=== PATIENT | female | born 1990 | race Caucasian/White ===

== ENCOUNTER 2020-01-01 12:32 | Emergency (ER) | payer OTHER ==
[2020-01-01 13:45] LABS: BASO % 0.3 % (0.0-1.0); EOS # 0.1 10^3/uL (0.0-0.5); EOS % 1.3 % (0.0-3.0); HEMATOCRIT 43.3 % (36.0-47.0); HEMOGLOBIN 14.8 g/dl (12.0-15.5); LYMPH # 1.5 10^3/uL (1.5-5.0); LYMPH % 16.9 % (24.0-44.0); MEAN CORPUSCULAR HEMOGLOBIN 31.5 pg (27.0-33.0); MEAN CORPUSCULAR HGB CONC 34.2 g/dl (32.0-36.5); MEAN CORPUSCULAR VOLUME 92.1 fl (80.0-96.0); MONO # 0.7 10^3/uL (0.0-0.8); MONO % 7.3 % (0.0-5.0); NEUTROPHILS # 6.6 10^3/uL (1.5-8.5); NEUTROPHILS % 74.1 % (36.0-66.0); PLATELET COUNT, AUTOMATED 228 10^3/uL (150-450); WHITE BLOOD COUNT 8.9 10^3/uL (4.0-10.0)
[2020-01-01 13:48] LABS: VENOUS BASE EXCESS 0.1 (-2.0-2.0); VENOUS HCO3 23.6 MEQ/L (23.0-27.0); VENOUS PARTIAL PRESSURE O2 44.8 mmHg (30.0-50.0); VENOUS PH 7.447 UNITS (7.330-7.430); VENOUS STANDARD HCO3 24.3 MEQ/L; VENOUS TOTAL CO2 24.7 MEQ/L (24.0-28.0)
[2020-01-01] MEDS ORDERED: [UNRECOGNIZED DRUG - CODE] PO (13:48)
[2020-01-01] MEDS ORDERED: birth control pills PO (13:48)
[2020-01-01 14:03] LABS: INR 0.97; PARTIAL THROMBOPLASTIN TIME 28.8 SECONDS (25.0-38.4); PROTHROMBIN TIME 12.6 SECONDS (11.8-14.0)
[2020-01-01 14:07] LABS: D-DIMER QUANT < 270 ng/ml (<500)
[2020-01-01 14:17] LABS: ALBUMIN 3.7 GM/DL (3.2-5.2); ALT/SGPT 28 U/L (12-78); BILIRUBIN,DIRECT < 0.1 MG/DL (0.0-0.2); BILIRUBIN,TOTAL 0.3 MG/DL (0.2-1.0); TOTAL PROTEIN 7.1 GM/DL (6.4-8.2)
[2020-01-01 14:23] LABS: HCG, SERUM QUALITATIVE NEGATIVE (NEGATIVE)
[2020-01-01 14:26] LABS: CK-MB VALUE MASS < 1.0 NG/ML (<3.6); CPK CREATINE PHOSPHOKINASE 99 U/L (26-192); LDH LACTATE DEHYDROGENASE 159 U/L (84-246); MB/CK RELATIVE INDEX 1.01 (< OR =4); TROPONIN I < 0.02 NG/ML (< 0.10)
--- NOTE | 2020-01-01 16:03 | REP ---
CHEST, SINGLE VIEW: There is no evidence of acute infiltrate. No pleural effusion is seen. The heart is normal in size. The mediastinal silhouette is unremarkable. The visualized osseous structures are intact. IMPRESSION: No acute pulmonary disease. Electronically Signed by Wing Membreno MD 01/01/2020 05:00 P
[2020-01-01 16:18] VITALS: BP 123/85
--- NOTE | 2020-01-03 08:36 | ECGEPIP ---
[facility] - ED Test Date: 2020-01-01 Pat Name: PARTHA TENORIO Department: Room: - Gender: Female [employer] Machine Operator: MAYRA : 1990 Requested By: MARIANNE ARSHAD Order Number: [id number] Reading MD: Soniya Carbajal Measurements Intervals [place] Rate: 82 P: 48 MT: 113 QRS: 35 QRSD: 80 T: -14 QT: 360 QTc: 422 Interpretive Statements SINUS RHYTHM WITH SINUS ARRHYTHMIA WITH SHORT MT INTERVAL NSTTW abnormalities NO PRIOR Electronically Signed on 01-03-2020 8:36:10 EDT by Soniya Carbajal
== END 2020-01-01 16:40 | disposition home or self-care (01) ==
LOC: M ED 12:32
DX: B34.8 Other viral infections of unspecified site (principal); J45.909 Unspecified asthma, uncomplicated; F41.9 Anxiety disorder, unspecified; Z88.0 Allergy status to penicillin; Z79.3 Long term (current) use of hormonal contraceptives

== ENCOUNTER 2021-02-03 08:33 | Emergency (ER) | payer OTHER ==
[~2021-02-03] VITALS: Ht 180.3 cm; Wt 65.0 kg
[~2021-02-03 08:33] MED LIST: [UNRECOGNIZED DRUG - CODE] PO; birth control pills PO
[2021-02-03] MEDS ORDERED: MAGNESIUM SULFATE 1GM/100ML D5W BAG (10MG/ML) As Ordered ONE (08:36)
[2021-02-03] MEDS ORDERED: MAG Sulf (L&D) 4 GM/100 ML 4 GM in IV 1 EA IV ONE (08:40)
[2021-02-03] MEDS ORDERED: CALCIUM GLUCONATE 1,000 MG in D5W MINI-BAG PLUS 100 ML IV PRN (08:55)
[2021-02-03] MEDS ORDERED: MAG Sulf (OBGYN) 20GM/500ML 20,000 MG in IV 1 EA IV SCH ×2 (08:55→09:00)
[2021-02-03] MEDS ORDERED: BETAMETHASONE SOLUSPAN 6MG/ML 5ML VIAL (J0702 PER 3MG) IM SCH (08:55)
[2021-02-03 08:56] LABS: BASO % 0.3 % (0.0-1.0); EOS # 0.1 10^3/uL (0.0-0.5); HEMATOCRIT 33.1 % (36.0-47.0); HEMOGLOBIN 10.9 g/dl (12.0-15.5); LYMPH # 1.4 10^3/uL (1.5-5.0); LYMPH % 17.5 % (24.0-44.0); MEAN CORPUSCULAR HEMOGLOBIN 31.7 pg (27.0-33.0); MEAN CORPUSCULAR HGB CONC 32.9 g/dl (32.0-36.5); MEAN CORPUSCULAR VOLUME 96.2 fl (80.0-96.0); MONO # 0.5 10^3/uL (0.0-0.8); MONO % 6.3 % (2.0-8.0); NEUTROPHILS # 5.8 10^3/uL (1.5-8.5); NEUTROPHILS % 74.1 % (36.0-66.0); PLATELET COUNT, AUTOMATED 159 10^3/uL (150-450); RED BLOOD COUNT 3.44 10^6/uL (4.00-5.40); WHITE BLOOD COUNT 7.8 10^3/uL (4.0-10.0)
[2021-02-03 09:25] LABS: ALBUMIN 2.6 GM/DL (3.2-5.2); ALT/SGPT 15 U/L (12-78); BILIRUBIN,DIRECT < 0.1 MG/DL (0.0-0.2); BILIRUBIN,TOTAL 0.2 MG/DL (0.2-1.0); BLOOD UREA NITROGEN 10 MG/DL (7-18); CALCIUM LEVEL 8.1 MG/DL (8.5-10.1); CARBON DIOXIDE LEVEL 24 MEQ/L (21-32); CHLORIDE LEVEL 108 MEQ/L (98-107); CREATININE FOR GFR 0.59 MG/DL (0.55-1.30); GLOMERULAR FILTRATION RATE > 60.0 (>60); GLUCOSE, FASTING 177 MG/DL (70-100); MAGNESIUM LEVEL 1.9 MG/DL (1.8-2.4); POTASSIUM SERUM 4.6 MEQ/L (3.5-5.1); SODIUM LEVEL 138 MEQ/L (136-145); TOTAL PROTEIN 5.9 GM/DL (6.4-8.2); URIC ACID 3.6 MG/DL (2.6-6.0)
[2021-02-03 09:27] VITALS: BP 110/66
[2021-02-03] MEDS ORDERED: ASPI81CH33 PO (09:56)
[2021-02-03] MEDS ORDERED: PRENMIS3 PO (09:56)
[2021-02-03] MEDS ORDERED: NS 1,000 ML IV ONE (10:55)
[2021-02-03 13:02] LABS: C REACTIVE PROTEIN QUANTITATIV < 0.30 MG/DL (0.00-0.30)
[2021-02-03 13:26] LABS: ERYTHROCYTE SEDIMENTATION RATE 28 mm/hr (0-20)
[2021-02-03 15:20] LABS: HEMOGLOBIN A1c 4.7 %; PROLACTIN 213.7 NG/ML
--- NOTE | 2021-02-04 09:30 | ECGEPIP ---
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
== END 2021-02-03 10:47 | disposition admitted as inpatient to this hospital (09) ==
LOC: EDBD 08:33 → M ED 08:33
DX: O15.00 Eclampsia complicating pregnancy, unspecified trimester (principal); Z88.0 Allergy status to penicillin; Z79.82 Long term (current) use of aspirin; Z79.899 Other long term (current) drug therapy

== ENCOUNTER 2021-02-03 09:28 | Inpatient (IN) | payer OTHER ==
[~2021-02-03] VITALS: Ht 149.9 cm; Wt 61.0 kg
[2021-02-03] VITALS (16 sets, daily range): BP systolic 63–110; BP diastolic 34–67
[2021-02-03] MEDS ORDERED: PRENMIS3 PO (09:56)
[2021-02-03] MEDS ORDERED: ASPI81CH33 PO (09:56)
[2021-02-03] MEDS ORDERED: LR 1,000 ML IV SCH (10:20)
[2021-02-03] MEDS: BETAMETHASONE SOLUSPAN 6MG/ML 5ML VIAL (J0702 PER 3MG) IM SCH (10:49)
[2021-02-03 11:21] LABS: APPEARANCE, URINE HAZY (CLEAR); BACTERIA, URINE AUTO NEGATIVE (NEGATIVE); BILIRUBIN, URINE AUTO NEGATIVE (NEGATIVE); BLOOD, URINE BLOOD NEGATIVE (NEGATIVE); COLOR, URINE YELLOW (YELLOW); GLUCOSE, URINE (UA) AUTO 3+ mg/dL (NEGATIVE); KETONE, URINE AUTO NEGATIVE (NEGATIVE); LEUKOCYTE ESTERASE, URINE AUTO NEGATIVE (NEGATIVE); NITRITE, URINE AUTO NEGATIVE (NEGATIVE); PROTEIN, URINE AUTO 1+ mg/dL (NEGATIVE); RBC, URINE AUTO 7 /HPF (0-3); SPECIFIC GRAVITY URINE AUTO 1.023 (1.002-1.035); SQUAMOUS EPITHELIAL CELL UR AU 1 /HPF (0-6); UROBILINOGEN, URINE AUTO 0.2 mg/dL (0.0-2.0); WBC, URINE AUTO 3 /HPF (0-3)
[2021-02-03 11:48] LABS: AMPHETAMINES URINE REFLEX NEGATIVE (NEGATIVE); BARBITURATES URINE REFLEX NEGATIVE (NEGATIVE); BENZODIAZEPINES URINE REFLEX NEGATIVE (NEGATIVE); CANNABINOIDS URINE REFLEX NEGATIVE (NEGATIVE); COCAINE METABOLITE URINE REFLE NEGATIVE (NEGATIVE); METHADONE URINE REFLEX NEGATIVE (NEGATIVE); OPIATES URINE REFLEX NEGATIVE (NEGATIVE); PHENCYCLIDINE URINE REFLEX NEGATIVE (NEGATIVE); TOTAL PROTEIN,RANDOM URINE 31.1 MG/DL (0.0-12.0)
--- NOTE | 2021-02-03 12:08 | HPEPDOC ---
Obstetrical History & Physical General Date of Admission Feb 03, 2021 at 09:28 History of Present Illness 30 yo at 28+2 weeks gestation by LMP of [id number] c/w 11+0 week US on [id number] was transported by EMS to [facility] after having apparent seizure activity at the [place] [facility] earlier today. She had just consumed her 100 gram oral glucose load for 3hr glucose tolerance testing when she started to feel very dizzy and apparently passed out. She then was slow to respond upon waking. EMS was called. While in the ambulance she was said to have multiple seizures per EMS personnel. She was urgently transported to the ER. I was requested to come to the ER immediately for evaluation. When I got into the ER Emily was sitting up and was awake and oriented X3. Her blood pressure was 120s/80s and she had a regular pulse. A 4gm magnesium bolus as ordered by the ER physician was running through her IV. Lab work was obtained. I did a bedside US which revealed a viable fetus in cephalic presentation with a heart beat in the 140s. CECY was 13.8cm. There was gross movement. I recommended she be transferred to L&D for further evaluation and workup. While this was being arranged and after I had left the bedside, she apparently had another seizure like episode that lasted less than a minute and didn't require any intervention. She ultimately made it up to L&D without incident. Chief Complaint: Other Information Provided By: Patient Age: 30 : 1 Term: 0 Pre-term: 0 Abortions: 0 Livin Care Care: Good Care Dating Final EDC: Apr 26, 2021 Final EDC for Daily Update: Apr 26, 2021 Final EDC by: LMP LMP: Jul 27, 2020 Antepartum Course Diagnos(e)s CHTN --> based on records review. Not on medication 4cm fundal fibroid Past Medical History Past Obstetrical History : Past Obstetrical History: Primgravida RHIA History: No pertinent history Past Medical History Medical History Denies. No history of seizure disorder. Surgical History: [place] teeth, Other (Oral surgery) Family History Significant Family History: No pertinent family hx Social History Marital Status: Family situation: Spouse/partner home Psychosocial History: No pertinent psych hx * Smoker: non-smoker Alcohol: Denies Drugs: denies Imunizations Tdap status: declined Influenza Status: needs Allergies Coded Allergies: Penicillins (Verified Allergy, Unknown, 01/01/20) Medications Scheduled Aspirin (Aspirin) 81 Mg Tab.chew, 81 MG PO DAILY for pain 95/Iron Fum/Folic/Dha ( + Dha Combo Pack) 1 Each Combo..pkg, 1 TAB PO DAILY Physical Examination Physical Examination GENERAL: Alert and oriented times three. ABDOMEN: Gravid and non-tender to touch. Appropriate size for gestational age. HEART RATE: Regular rate and rhythm. LUNGS: Clear to auscultation (CTA). EXTREMITIES: No edema. No clonus. Vital Signs/I&O Vital Signs Date Time Temp Pulse Resp B/P (MAP) Pulse Ox O2 Delivery O2 Flow Rate FiO2 02/03/21 11:01 81 102/55 (71) 02/03/21 09:46 97.7 16 100 Laboratory Data 24H LABS Laboratory Tests 2 02/03/21 10:24: 02/03/21 10:34: Bedside Glucose (Misc Panel) 134H 02/03/21 11:10: Urine Color YELLOW, Urine Appearance HAZY, Urine pH 7.0, Urine Specific [place] 1.023, Urine Protein 1+H, Urine Glucose (Auto)(UA) 3+H, Urine Ketones (Auto) NEGATIVE, Urine Blood NEGATIVE, Urine Nitrite NEGATIVE, Urine Bilirubin NEGATIVE, Urine Urobilinogen 0.2, Urine Leukocyte Esterase (Auto) NEGATIVE, Urine WBC (Auto) 3, Urine RBC (Auto) 7H, Urine Hyaline Casts (Auto) 0, Urine Bacteria (Auto) NEGATIVE, Urine Squamous Epithelial Cells 1, Urine Sperm (Auto) Microbiology Microbiology 02/03/21 Urine Culture, Received Pending Pertinent Laboratoy Data Blood Type: O+ RBC Antibody Screen: Negative HIV: Negative Hepatitis B: Negative Hepatitis C: Unknown Rapid Plasma Reagin: Nonreactive Rubella: Immune Varicella: Immune Chlamydia/Gonorrhea: Negative Group B Streptococcus: Unknown Quad Screen Test: Unknown (Had low risk cff DNA genetic screening) Glucose Tolerance Test: 174 Anatomy Ultrasound Placenta Location: Anterior Normal Anatomy: Yes Placenta Previa: No Steroid Therapy Date #1: Feb 03, 2021 Reason Concern for eclampsia Assessment Heart Rate (FHR): 130 Variability: Moderate Accelerations: Positive Decelerations: None Tocometer Contractions: No Assessment/Plan Assessment 30 yo at 28+2 weeks gestation admitted to L&D for apparent seizure activity. Plan Diagnosis at this time is unclear. Emily and her fetus are stable at this time and there is no need for acute intervention. FHR tracing is Cat I and Emily's vitals are normal. Vasovagal episode, vs cardiac arrhythmia, vs eclampsia are all on the differential. She developed hypotension after her magnesium bolus in the ER, and felt symptomatic. However, her "seizure" like episodes occurred multiple times before magnesium was given. Blood work is not consistent with pre eclampsia / eclampsia and she has never been hypertensive. Glucose levels have been somewhat elevated, however she just had a 100 gm glucose load this morning. We are still awaiting results from her urine drug screen and urine protein test. At this time I will hold off on further IV magnesium therapy (she completed a 4gm bolus dose in the ER) as eclampsia does not seem likely at this time. However, if she continues to seize or develops other signs/symptoms of elcampsia we will restart it and move towards delivery. Will maintain on LR 125ml/hr. I have consulted the inpatient hospitalist service for recommendations and they have agreed to see the patient. ECG in the ER was normal. Will maintain continuous FHR monitoring for now. Diaz catheter is in place as well as SCDs. I reviewed the plan with Emily and her and answered all questions. They are in agreement with the plan of care. DO DEJON Busch CHRISTOPHER J. DO Feb 03, 2021 12:08
[2021-02-03] MEDS ORDERED: PHENAZOPYRIDINE 100 MG TAB PO PRN (16:25)
--- NOTE | 2021-02-03 16:38 | IPNPDOC ---
Text Note Date of Service The patient was seen on 02/03/21. NOTE Emily reports feeling much improved. She denies extreme fatigue, dizziness, headaches, RUQ pain, visual changes, or SOB. She reports feeling hungry. She denies any vaginal bleeding, pelvic pain, or leakage of fluid. She endorses movement. Vitals - VSS, afebrile, normotensive, non tachycardic General - AAOX3, laying in bed, NAD, pleasant and conversant Abdomen- Gravid uterus, no fundal tenderness - Capellan cath in place at bedside draining clear/yellow urine. FHR tracing - Cat I with moderate variability, +accels, no decels New Labs: pr:cr - 0.27 TSH - 2.82 Plan will be for overnight observation while we collect a 24 hour urine protein. Pre eclampsia / eclampsia still appears less likely. BP is stable. She has never been hypertensive. If she has further seizure like episodes I will obtain a head CT after discussion with the hospitalist service. status has been reassuring during prolonged monitoring. Will order Q8H NSTs. Regular diet. Maintain capellan catheter for now for accurate 24 hour urine protein level. Pyridium PRN for bladder discomfort. Appreciate the hospitalist service consultation. All patient and questions answered. Jv Moser DO VS,Reema, I+O VS, Reema, I+O Vital Signs Date Time Temp Pulse Resp B/P (MAP) Pulse Ox O2 Delivery O2 Flow Rate FiO2 02/03/21 15:08 82 18 102/55 (71) 02/03/21 09:46 97.7 100 JV MOSER DO Feb 03, 2021 16:38
--- NOTE | 2021-02-03 18:06 | CR.PDOC ---
General Date of Consultation: Feb 03, 2021 Referring Provider: TACHO ASHFORD DO Attending Physician: TACHO ASHFORD DO Consultation Consulting physician: Dr. Tacho Ashford D.O. REASON FOR CONSULTATION/CHIEF COMPLAINT: Seizure and hypotensive episode in the setting of 28 wk . HISTORY OF PRESENT ILLNESS: Patient is a 30 y/o F, at 28 weeks gestation, with no significant past medical history who was consulted for seizure and hypotensive episode in the setting of 28 wk . Per patient, she has been fasting since 7:30pm last night for a 3 hour glucose tolerance test 7am this morning at [facility]. She has only been taking sips of water overnight. After taking her glucose dose, patient was sitting when she had an acute onset of feeling hot, sweating, wooziness and blurry vision prompting her to alert nursing staff at the clinic, who called for EMS. She did not lose consciousness during this episode and her symptoms gradually improved as she waited for EMS arrival. Upon arrival of EMS, patient developed another episode of wooziness while EMS was trying to check her blood sugar on scene, prompting patient to be transported to ED for evaluation. While enroute, patient felt like she was ready to rest her eyes, and waking up at a confused state. She was told by EMS that she was shaking during her unresponsive episode. Upon arrival at the ED, patient was given loading dose of magnesium sulfate (4gm) at 8:40am and Dr. Ashford was called for admission to L&D unit. However, while in the ED, pts was at bedside and reported witnessing another episode of seizure like activity. said patient was feeling hot and started to sweat profusely. 5 minutes after, she had another episode of unresponsiveness in which patients eyes rolled back, foaming at the mouth, her lips had discoloration and her face became pale with blood pressure and heart rate dropping. denied witnessing bowel or bladder incontinence and obvious shaking (may have some tremor). He then noticed patient was speaking with a mouthful of marbles upon recovering, followed by returning back to baseline spontaneously. Patient was only able to recall waking up to nurses trying to wake her up. Review of records showed patient developed bradycardia (55) and hypotension (63/34) at 10:20am. Patient was given 1L bolus of LR subsequently. Patient had no other episodes upon transferring to L&D unit and continued to be at baseline, hospitalist was consulted for evaluation. Patient has no past medical hx of seizure. She reported getting more easily fatigued this week (getting tired half way through her work day). She denied recent changes to her diet or daily routine, fall, head trauma, traveling, sick contact. This is her first and she denied known complication. However, she noted that her blood pressure has been borderline since the beginning of her in which she would be found with systolic BP of 133 in one arm and repeat BP in a different arm will be normal. She was started on 81mg ASA and vitamin and no other medications. She also denied recent fever, chills, cough, CP, SOB, abd pain, rhinorrhea, melena, hematochezia and urinary symptoms. However, patient did report bloody discharge from B/L nipples that started 2 weeks ago. She described noticing spots of blood (~0.5cm) on her shirt upon waking up and new onset of sensitive areola yesterday and today. She also reported developing a nonpruitic rash on her posterior knee a week ago that resolved with hydrocortisone cream. Of note, patient denied reca lling assessment of blood pressure at [facility] and only recalling pre-test blood glucose of 88, post PO glucose glucose of 230s and followed by 134 a while later. Patient received her 1st COVID vaccine (Moderna) 2 weeks ago. ALLERGIES: Please see below. HOME MEDICATIONS: Please see below. PAST MEDICAL HISTORY: None PAST SURGICAL HISTORY: oral surgeries (wisdom tooth extraction and gum graft). FAMILY HISTORY: Patient denied family hx of seizure Mother with clotting issues that patient recalled as low fibrinogen. Father at age 50 2/2 auto-accident Maternal grandmother- Hx of HTN Paternal grandmother- Hx of DM SOCIAL HISTORY: Tobacco use: Never used tobacco product ETOH: Denied alcohol use since beginning of Illicit drug use: Never used any illicit drug or IV drug Occupation: [employer] rep REVIEW OF SYSTEMS: CONSTITUTIONAL: Denies chills, fever, weakness, loss of appetite, noted getting more easily fatigued. HEENT: Denies headaches, dizziness, hearing changes or throat pain. Noted episodes of blurry vision now resolved CARDIOVASCULAR: Denies chest pain, palpitations, dyspnea on exertion, edema RESPIRATORY: Denies wheezing, dyspnea, cough or hemoptysis GASTROINTESTINAL: Denies nausea, vomiting, abdominal pain, diarrhea, constip ation, melena, hematochezia GENITAOURINARY: Denies dysuria, hematuria, urinary frequency, incontinence or retention. SKIN: Denies skin changes, lesions, jaundice, bruising, noted rash 1 wk ago now resolved. No significant lesion on bilateral areolas MUSCULOSKELETAL: Denies weakness, muscle or joint pain. NEUROLOGICAL: Denies focal weakness, numbness, tingling, change in Speech HEMATOLOGICAL: Denies bruising, excessive bleeding, petechiae PHYSICAL EXAMINATION: VITAL SIGNS: See below GENERAL APPEARANCE: Revealed 30 y/o F pleasant and , with at bedside, sitting with head of bed up, alert & oriented x3, in no Acute Distress. HEENT Exam: Normocephalic and atraumatic, PERRL, EOMI, without sclera icteric, mucous membr. moist/pink, pharynx normal, nares patent. NECK: Supple without lymphadenopathy, JVD, thyromegaly LUNGS: Clear to auscultation bilaterally with full breath sounds without rales, wheezing, and crackles. CARDIOVASCULAR: Hyperdynamic heart sound noted. Regular rate and rhythm, normal S1 & S2 without murmurs, rubs. S3 gallop noted. ABDOMEN: Gravid abd with fundal height between xiphoid process and umbilicus. No masses or ecchymosis. EXTREMITIES: 2+ pulses in all extremities. No clubbing, cyanosis, edema, tenderness SKIN: Normal turgor and temperature. No rash, lesion MUSCULOSKELETAL: Strength +5/5 in all extremities without tenderness. NEUROLOGICAL: Normal speech with intact sensation, cranial nerves III-XII normal. No signs of gross focal neurological deficit. PSYCHIATRIC: Normal mood and affect LABORATORY DATA: Please see below. ASSESSMENT/PLAN: Assessment/Plan: Patient is a 30 y/o F, at 28 weeks gestation, with no significant past medical history who presented to [facility] ED via EMS for seizure. She was admitted to L&D unit by Dr. Ashford and hospitalist service was consulted for her seizure and hypotensive episode. # Seizure episodes - likely 2/2 vasovagal episode with hypotension causing hypoperfusion and seizure -OBGYN noted bloodwork inconsistent with preeclampsia/ eclampsia - proceed with more conservative management, if patient develop another seizure episode again, will consider neurology consult - Continue regular diet - Fall precaution - Patient denied personal and family hx of seizure, recent changes to her diet or daily routine, falls, head trauma, traveling, sick contact. - Unremarkable tobacco, alcohol and drug social history - Pt denied hypertension and other complications in her current - Echocardiogram ordered -anticipate patient can be cleared for discharge after monitoring for 18 to 24 hours without development of additional episodes of symptoms. - Patient follows with OBGYN and last appointment was in 10/2020, in between she has had visits with Mid- # Hypotensive episode - Patient received 4mg loading dose magnesium sulfate for eclampsia prophylaxis in ED at 8:40am and developed hypotension 10:20am. -likely 2/2 to magnesium -received 1L bolus of LR in ED and BP remained stable at >100s/50s now -Patient has no previous cardiac history -echocardiogram ordered to r/o other causes # B/L bloody nipple discharge - Reported seeing 0.5cm blood spots on shirt overnight - Can be 2/2 cracking of nipples in the setting of - Patient has outpatient visit scheduled on 02/25/21. - Given it is bilateral, unlikely to be malignancy, will defer to outpatient follow up. Vital Signs/I&O Vital Signs Date Time Temp Pulse Resp B/P (MAP) Pulse Ox O2 Delivery O2 Flow Rate FiO2 02/03/21 15:08 82 18 102/55 (71) 02/03/21 09:46 97.7 100 Laboratory Data Labs 24H Laboratory Tests 2 02/03/21 10:24: 02/03/21 10:34: Bedside Glucose (Misc Panel) 134H 02/03/21 11:10: Urine Color YELLOW, Urine Appearance HAZY, Urine pH 7.0, Urine Specific [place] 1.023, Urine Protein 1+H, Urine Glucose (Auto)(UA) 3+H, Urine Ketones (Auto) NEGATIVE, Urine Blood NEGATIVE, Urine Nitrite NEGATIVE, Urine Bilirubin NEGATIVE, Urine Urobilinogen 0.2, Urine Leukocyte Esterase (Auto) NEGATIVE, Urine WBC (Auto) 3, Urine RBC (Auto) 7H, Urine Hyaline Casts (Auto) 0, Urine Bacteria (Auto) NEGATIVE, Urine Squamous Epithelial Cells 1, Urine Sperm (Auto) , Urine Random Creatinine 115.0, Urine Random Total Protein 31.1H, Urine Opiates Screen NEGATIVE, Urine Methadone Screen NEGATIVE, Urine Barbiturates Screen NEGATIVE, Urine Phencyclidine Screen NEGATIVE, Urine Amphetamines Screen NEGATIVE, Urine Benzodiazepines Screen NEGATIVE, Urine Cocaine Metabolite Screen NEGATIVE, Urine Cannabinoids Screen NEGATIVE Microbiology Microbiology 02/03/21 Urine Culture, Received Pending Allergies Coded Allergies: Penicillins (Verified Allergy, Unknown, 01/01/20) Home Medications Scheduled Aspirin (Aspirin) 81 Mg Tab.chew, 81 MG PO DAILY for pain for 30 Days, #30 (Reported) 95/Iron Fum/Folic/Dha ( + Dha Combo Pack) 1 Each Combo..pkg, 1 TAB PO DAILY for 30 Days, #30 (Reported) GME ATTESTATION GME ATTESTATION My faculty preceptor for this patient encounter was physically present during the encounter and was fully available. All aspects of the patient interview, examination, medical decision making process, and medical care plan development were reviewed and approved by the faculty preceptor. The faculty preceptor is aware and concurs with the plan as stated in the body of this note and will attest to such by his/her cosignature. ATTENDING NOTE I, Sagar Cesar MD, have independently examined this patient and performed my own physical exam, as well as reviewed the documentation and edited where necessary. I have discussed in detail with the resident / student the findings and plan of treatment as documented by the resident / student and edited their note. I agree with their findings and treatment plan and have edited their documentation. VISHAL LORENZO OMS-3 Feb 03, 2021 18:06 SAGAR CESAR MD February 07, 2021 14:57
[2021-02-04 06:27] VITALS: BP 108/58
[2021-02-04 08:20] VITALS: BP 113/68
[2021-02-04 08:29] LABS: BASO % 0.1 % (0.0-1.0); HEMATOCRIT 31.1 % (36.0-47.0); HEMOGLOBIN 10.1 g/dl (12.0-15.5); LYMPH % 8.9 % (24.0-44.0); MEAN CORPUSCULAR HEMOGLOBIN 31.8 pg (27.0-33.0); MEAN CORPUSCULAR HGB CONC 32.5 g/dl (32.0-36.5); MEAN CORPUSCULAR VOLUME 97.8 fl (80.0-96.0); MONO # 0.6 10^3/uL (0.0-0.8); MONO % 5.1 % (2.0-8.0); PLATELET COUNT, AUTOMATED 149 10^3/uL (150-450); RED BLOOD COUNT 3.18 10^6/uL (4.00-5.40); WHITE BLOOD COUNT 11.7 10^3/uL (4.0-10.0)
[2021-02-04 09:38] LABS: ALBUMIN 2.4 GM/DL (3.2-5.2); ALT/SGPT 12 U/L (12-78); BILIRUBIN,TOTAL 0.4 MG/DL (0.2-1.0); BLOOD UREA NITROGEN 7 MG/DL (7-18); CARBON DIOXIDE LEVEL 22 MEQ/L (21-32); CHLORIDE LEVEL 111 MEQ/L (98-107); CREATININE FOR GFR 0.43 MG/DL (0.55-1.30); GLOMERULAR FILTRATION RATE > 60.0 (>60); GLUCOSE, FASTING 113 MG/DL (70-100); POTASSIUM SERUM 3.5 MEQ/L (3.5-5.1); SODIUM LEVEL 140 MEQ/L (136-145); TOTAL PROTEIN 5.3 GM/DL (6.4-8.2)
[2021-02-04] MEDS: BETAMETHASONE SOLUSPAN 6MG/ML 5ML VIAL (J0702 PER 3MG) IM SCH (11:10)
--- NOTE | 2021-02-04 11:46 | IPNPDOC ---
Text Note Date of Service The patient was seen on 02/04/21. NOTE S Patient did not develop any additional seizure episodes overnight. She denied current fever, chills, CP, SOB, AMAYA, palpitation, N/V/D, abd pain and urinary symptoms. She noted small amount of milky-yellow discharge from L breast since last night. O VITAL SIGNS: See below GENERAL APPEARANCE: Revealed 30 y/o F pleasant and , with at bedside, sitting with head of bed up, alert & oriented x3, in no Acute Distress. HEENT Exam: Normocephalic and atraumatic, PERRL, EOMI, without sclera icteric, mucous membr. moist/pink, pharynx normal, nares patent. NECK: Supple without lymphadenopathy, JVD, thyromegaly LUNGS: Clear to auscultation bilaterally with full breath sounds without rales, wheezing, and crackles. CARDIOVASCULAR: Hyperdynamic heart sound noted. Regular rate and rhythm, normal S1 & S2 without murmurs, rubs. S3 gallop noted. ABDOMEN: Gravid abd with fundal height between xiphoid process and umbilicus. No masses or ecchymosis. EXTREMITIES: 2+ pulses in all extremities. No clubbing, cyanosis, edema, tenderness SKIN: Normal turgor and temperature. No rash, lesion MUSCULOSKELETAL: Strength +5/5 in all extremities without tenderness. NEUROLOGICAL: Normal speech with intact sensation, cranial nerves III-XII normal. No signs of gross focal neurological deficit. PSYCHIATRIC: Normal mood and affect ASSESSMENT/PLAN: Assessment/Plan: Patient is a 30 y/o F, at 28 weeks gestation, with no significant past medical history who presented to [facility] ED via EMS for seizure. She was admitted to L&D unit by Dr. Moser and hospitalist service was consulted for her seizure and hypotensive episode. Patient did not develop any additional episodes overnight. # Seizure episodes - likely 2/2 vasovagal episode with hypotension causing hypoperfusion and seizure - no further episodes of seizure overnight, patient's labs stable this am - OBGYN noted bloodwork inconsistent with preeclampsia/ eclampsia - Patient denied personal and family hx of seizure, recent changes to her diet or daily routine, falls, head trauma, traveling, sick contact. - Unremarkable tobacco, alcohol and drug social history - Pt denied hypertension and other complications in her current - Echocardiogram results pending - Patient follows with OBGYN and last appointment was in 10/2020, in between she has had visits with Mid- - recommend closely monitor with OBGYN follow up visits upon discharge - patient might benefit from outpatient follow up with neurology - From IM standpoint, patient is clinically stable for discharge # Hypotensive episode - Patient received 4mg loading dose magnesium sulfate for eclampsia prophylaxis in ED at 8:40am and developed hypotension 10:20am. -likely 2/2 to magnesium -received 1L bolus of LR in ED and BP remained stable at >100s/50s overnight -Patient has no previous cardiac history -echocardiogram results pending # B/L bloody nipple discharge - Reported seeing 0.5cm blood spots on shirt occasionally over the past 2 weeks - Can be 2/2 cracking of nipples in the setting of - Patient has outpatient visit scheduled on 02/25/21. - Given it is bilateral, unlikely to be malignancy, will defer to outpatient follow up. VS,Fishbone, I+O VS, Fishbone, I+O Laboratory Tests 02/04/21 08:07 Vital Signs Date Time Temp Pulse Resp B/P (MAP) Pulse Ox O2 Delivery O2 Flow Rate FiO2 02/04/21 08:20 91 18 113/68 (83) 02/04/21 06:27 98.3 02/03/21 09:46 100 I&O- Last 24 Hours up to 6 AM 02/04/21 06:00 Intake Total 2010 ml Output Total 1500 ml Balance 510 ml GME ATTESTATION GME ATTESTATION My faculty preceptor for this patient encounter was physically present during the encounter and was fully available. All aspects of the patient interview, examination, medical decision making process, and medical care plan development were reviewed and approved by the faculty preceptor. The faculty preceptor is aware and concurs with the plan as stated in the body of this note and will attest to such by his/her cosignature. ATTENDING NOTE I, Sagar Cesar MD, have independently examined this patient and performed my own physical exam, as well as reviewed the documentation and edited where necessary. I have discussed in detail with the resident / student the findings and plan of treatment as documented by the resident / student and edited their note. I agree with their findings and treatment plan and have edited their documentation. VISHAL LORENZO OMS-3 Feb 04, 2021 11:46 SAGAR CESAR MD February 07, 2021 15:00
--- NOTE | 2021-02-07 10:43 | ECHO ---
DATE OF PROCEDURE: 02/04/2021 Age: 30 Gender: Female Height: 59 inches Weight: 133 pounds Body surface area: 1.55 m2 PATIENT LOCATION: Inpatient labor and delivery. REFERRING PHYSICIAN: Mt Santos MD. INDICATION: Syncope seizure. MEASUREMENTS: 2D Measurements: RV 3.3 cm LA 4.2 cm Septum 0.9 cm Posterior wall 0.9 cm Aortic Root 3.0 cm LA 3.1 cm LVEF 65% Doppler Measurements: AV 1.2 m/s LVOT 0.92 m/s LVOT diameter 1.9 cm MV-E 93, A 60, E/A ratio 1.5 Early mitral deceleration time 217 msec E prime medial 10, A prime medial 8, E prime lateral 17.3 PV 0.9 m/s Pulmonary artery acceleration time 120 msec PASP 28 mmHg IVC 1.9 cm COMMENTS: Normal sinus rhythm without intraventricular conduction disturbance. M-mode and two-dimensional echocardiography was performed with pulse, continuous wave, color flow, and tissue Doppler studies. Normal left ventricular size, wall thickness, and wall motion. Normal left atrial size and Doppler assessment of LV diastolic function and estimated mean left atrial pressure. Normal right heart chamber sizes and wall motion and estimated pulmonary arterial pressure. Normal IVC size and collapse against an elevated central venous pressure. Normal aortic dimensions. Normal appearing aortic valve and aortic valve function. Normal appearing mitral valve with very mild mitral insufficiency (physiologic). Normal appearing tricuspid valve with mild insufficiency (physiologic). No apparent intracardiac mass or pericardial effusion. MTDD
== END 2021-02-04 15:15 | disposition home or self-care (01) | DRG 833 ==
LOC: M LDI 09:28
PROVIDERS: ADMIT Obstetrics & Gynecology; ATTEND Obstetrics & Gynecology
DX: O99.353 Diseases of the nervous system complicating pregnancy, third trimester (principal); Z88.0 Allergy status to penicillin; G40.909 Epilepsy, unspecified, not intractable, without status epilepticus; Z3A.28 28 weeks gestation of pregnancy; I95.9 Hypotension, unspecified

== ENCOUNTER → 2021-02-16 | Outpatient (CLI) | payer OTHER ==
[~2021-02-16] MED LIST changes: +ASPI81CH33 PO; +PRENMIS3 PO
--- NOTE | 2021-02-17 09:35 | REP ---
INDICATION: BLOODY NIPPLE DISCHARGE. COMPARISON: None TECHNIQUE: Bilateral whole breast ultrasonography was performed in an [id number] fashion due to bloody nipple discharge. Review of the order does not indicate which breast the discharge is coming from. The patient is 27 weeks gravid FINDINGS: Bilateral breast ultrasonography shows no cystic or solid masses. IMPRESSION: ACR category 2 benign bilateral breast ultrasonography. A negative ultrasound examination does not obviate further imaging with mammography, ductography, or breast MRI. <Electronically signed by Romeo Arvizu > 02/17/21 0931
== END ==
LOC: M WHC 12:02
DX: N64.52 Nipple discharge (principal)